=== PATIENT | female | born 1975 | race African-American/Black ===

== ENCOUNTER → 2016-07-23 | Outpatient (CLI) | payer OTHER ==
[~2016-07-23] MED LIST: ADVIL200 M2 PO; ALLEGRA180 MG PO; CELEXA20 MG PO; FOLIC ACID PO; MULTIPLE VITAMI1 T11 PO; NEXIUM PO; OMEPRAZOLE20 M1 PO; PRILOSEC PO; RELAFEN500 MG PO; VICOPROFEN 200-1 TAB PO; VIT B-12 PO; [UNRECOGNIZED DRUG - OTHER]; [UNRECOGNIZED DRUG - REMARK]
== END | disposition home or self-care (01) ==
LOC: CBAR 15:37
DX: Z01.818 Encounter for other preprocedural examination (principal); E66.01 Morbid (severe) obesity due to excess calories
CPT/HCPCS: G0463

== ENCOUNTER → 2016-09-18 | Outpatient (CLI) | payer SELFPAY | END | disposition home or self-care (01) | LOC: CBAR 15:55 | DX: Z01.818 Encounter for other preprocedural examination (principal); E66.01 Morbid (severe) obesity due to excess calories | CPT/HCPCS: G0463 ==